=== PATIENT | male | born 1950 | race Caucasian/White ===

== ENCOUNTER → 2020-11-03 | Outpatient (CLI) | payer OTHER ==
[~2020-11-03] MED LIST: AMLO1CAP54 PO; REGADENOSON 0.4 MG/5 ML DISP.SYRIN. IV ONE
--- NOTE | 2020-11-03 14:44 | CARD ---
MR#: [id number] Date of Study: 11/03/2020 Ordering Physician: ECTOR TODD, Referring Physician: ECTOR TODD Tech: Cinthia Hernandez [facility] APPROVED REPORT EXAM: Two-dimensional and M-mode echocardiogram with Doppler and color Doppler. Other Information Quality : AverageHR: 56bpm Rhythm : NSR INDICATION Dyspnea 2D DIMENSIONS RVDd3.2 (2.9-3.5cm)Left Atrium(2D)3.2 (1.6-4.0cm) IVSd1.3 (0.7-1.1cm)Aortic Root(2D)3.3 (2.0-3.7cm) LVDd3.8 (3.9-5.9cm)LVOT Diameter2.1 (1.8-2.4cm) PWd1.1 (0.7-1.1cm)LVDs2.2 (2.5-4.0cm) FS (%) 42.3 %SV46.3 ml Aortic Valve AoV Peak Mookie.179.1cm/sAoV VTI41.2cm AO Peak GR.12.8mmHgLVOT Peak Mookie.137.4cm/s AO Mean GR.6mmHgAVA (VMAX)2.72cm2 Mitral Valve MV E Ppgnfgsz592.6cm/sMV DECEL BOTI695ca MV A Qfpvlche951.7cm/sE/A Ratio1.0 Tricuspid Valve TR P. Dhilnwvq759fr/sTR Peak Gr.20mmHg LEFT VENTRICLE The left ventricle is normal size. There is mild concentric left ventricular hypertrophy. The left ve ntricular systolic function is normal and the ejection fraction is within normal range. Estimated eje ction fraction 60-65%. There is normal LV segmental wall motion. The left ventricular diastolic funct ion and filling is normal for age. RIGHT VENTRICLE The right ventricle is normal size. There is normal right ventricular wall thickness. The right ventr icular systolic function is normal. ATRIA The left atrium size is normal. The right atrium size is normal. The interatrial septum is intact wit h no evidence for an atrial septal defect or patent foramen ovale as noted on 2-D or Doppler imaging. AORTIC VALVE The aortic valve is normal in structure and function. Doppler and Color Flow revealed mild aortic reg urgitation. There is no significant aortic valvular stenosis. MITRAL VALVE The mitral valve is normal in structure and function. There is no evidence of mitral valve prolapse. There is no mitral valve stenosis. Doppler and Color-flow revealed mild mitral regurgitation. TRICUSPID VALVE The tricuspid valve is normal in structure and function. Doppler and Color Flow revealed mild tricusp id regurgitation. Estimated PAP 25 mmHg. There is no tricuspid valve stenosis. PULMONIC VALVE The pulmonary valve is normal in structure and function. Doppler and Color Flow revealed no pulmonic valvular regurgitation. GREAT VESSELS The aortic root is normal in size. The ascending aorta is normal in size. The IVC is normal in size a nd collapses >50% with inspiration. PERICARDIAL EFFUSION There is no evidence of significant pericardial effusion. Critical Notification Critical Value: No <Conclusion> The left ventricle is normal size. The left ventricular systolic function is normal and the ejection fraction is within normal range. E stimated ejection fraction 60-65%. There is mild concentric left ventricular hypertrophy. Doppler and Color Flow revealed mild aortic regurgitation. There is no significant aortic valvular stenosis. Doppler and Color-flow revealed mild mitral regurgitation. Doppler and Color Flow revealed mild tricuspid regurgitation. Estimated PAP 25 mmHg. Signed by : Rod Li MD Electronically Approved : 11/03/2020 14:43:29
--- NOTE | 2020-11-03 14:47 | RAD ---
MR#: [id number] Date of Study: 11/03/2020 Ordering Physician: ECTOR TODD, Referring Physician: CHERRY AYON Tech: RT Oz (R) (N) APPROVED REPORT Test Type: Pharmacological Stress Nurse/Tech: Pily Varela RN Test Indications: dyspnea on exertion Cardiac History: HTN Medications: See Electronic Medical Record Medical History: See Electronic Medical Record Resting ECG: SR Resting Heart Rate: 53 bpm Resting Blood Pressure: 141/73mmHg Pretest Chest Pain: None Nurse/Tech Notes Lungs CTA, S1S2 Consent: The procedure was explained to the patient in lay terms. Informed consent was witnessed. Cleve eout was entered into [employer]. History and Stress Test performed by NICO Noble, ANNEMARIE (R) (N) Pharm. Details Pharmacologic stress testing was performed using 0.4mg per 5ml of regadenoson given intravenously ove r 7-10 seconds. Stress Symptoms No chest pain. Flushing POST EXERCISE Reason for Termination: Infusion complete Max HR: 76 bpm Max Blood Pressure: 158/74mmHg Blood Pressure response to exercise: Normal blood pressure response during stress. Heart Rate response to exercise: normal response Chest Pain: No. Arrhythmia: No. INTERPRETATION Stress EKG Conclusion: The resting EKG shows a sinus rhythm and mild nonspecific T wave changes. The stress EKG shows no significant changes from baseline. No EKG evidence of stress-induced ischemia. Imaging Protocol IMAGE PROTOCOL: Rest Tc-99m/stress Tc-99m 1 day Rest: Stress: Viability: Radiopharm.Tc99m CbduatjnoOv26b Sestamibi Sain93dGy 31mCi Duration 15min. 10min. Img Date 11/03/2020 11/03/2020 Inj-Img [id number]. 60min. Rest Admin Site:IV - Right AntecubitalAdministrator:NICO Noble, ANNEMARIE (R)(N) Stress Admin Site: IV - Right AntecubitalAdministrator: NICO Noble, ANNEMARIE (R)(N) STRESS DATA End Diast. Vol.102.0mlAv. Heart Rate72.0bpm End Syst. Vol.15.0mlCO Index BSA6.3L/min Myocardial Ssow157.0gEject. Vkseorcu25.0% Stress Rates Pk. Fill Rate2.82EDV/secLVtime Pk. Fill 153.31msec Pk. Empty Rate4.12ESV/secLVtime Pk. Mhkcw902.67msec 1/3 Pk. Fill1.86EDV/sec Stress Scores Regional WT0.00Summed WT1.00 Regional WM0.00Summed WM0.00 LV Perfusion The stress scans showed no significant defects. The rest scans showed no significant defects. Nuclear imaging shows no reversible ischemia or infarct. Wall Motion Left ventricular systolic function is normal with no regional wall motion abnormalities and an ejecti on fraction of greater than 70%. LV Perf. Quant 17 Seg. SSS0.00 17 Seg. SRS0.00 17 Seg. SDS0.00 Stress Defect Extent (% LAD)0.00Rest Defect Extent (% LAD)3.10Rev. Defect Extent (% LAD)0.00 Stress Defect Extent (% LCX) 0.00Rest Defect Extent (% LCX)0.00Rev. Defect Extent (% LCX)0.00 Stress Defect Extent (% RCA)0.00Rest Defect Extent (% RCA)0.00Rev. Defect Extent (% RCA)0.00 Stress Defect Extent (% ASHWIN)0.00Rest Defect Extent (% ASHWIN)1.10Rev. Defect Extent (% ASHWIN)0.00 Conclusion 1. No EKG evidence of stress-induced ischemia. 2. Nuclear imaging shows no reversible ischemia or infarct. 3. Normal left ventricular systolic function with an ejection fraction of greater than 70%. 4. Low risk Lexiscan nuclear stress test. Signed by : Rod Li MD Electronically Approved : 11/03/2020 14:47:01
== END ==
LOC: NM 11:20
PROVIDERS: ATTEND Internal Medicine Cardiovascular Disease
DX: I08.3 Combined rheumatic disorders of mitral, aortic and tricuspid valves (principal); I10 Essential (primary) hypertension
CPT/HCPCS: 78452; 93017; 93306; A9500; J2785